=== PATIENT | male | born 1965 | race African-American/Black ===

== ENCOUNTER 2016-08-13 13:53 | Emergency (ER) ==
--- NOTE | 2016-08-13 15:57 | PROVIDER DOCUMENTATION ---
HPI-Musculoskeletal Pain/Inj - GENERAL Chief Complaint: Extremity Pain Stated Complaint: ARM EDEMA Time Seen by Provider: 08/13/16 15:45 Source: patient - HX OF PRESENT ILLNESS-MUSKULOSKELTAL Nature of Presenting Problem: 51 year old AAM presents with c/o RUE swelling, edema, erythema spreading from the wrist up into the axilla region. associated symptoms include subjective fever/chills. pt has a history of gout and he reports this feels like his gout. he reports he has flare ups every other month and his primary care doctor at the [facility] merlin on Prednisone 20mg daily to control, he ran out a few weeks ago. Quality of Pain: reports: aching, dull Severity in ED: mild Onset/Duration: 3 days ago Timing: still present, constant, getting worse Modifying Factors: improves with: nothing, analgesics (pt reports brief relief with advil) Any recent injury?: No Similar Symptoms Previously?: Yes Recently seen or treated by another doctor?: No Review of Systems - Adult - REVIEW OF SYSTEMS - ADULT Constitutional: reports: see HPI, chills, fever. denies: fatique Eyes: reports: no symptoms reported. denies: discharge, blurred vision, double vision Ears, Nose, Mouth & Throat: reports: no symptoms reported. denies: ear discharge, ear pain, nose pain, loose teeth, throat pain, throat swelling Cardiovascular: reports: no symptoms reported. denies: chest pain, palpitations , syncope Respiratory: reports: no symptoms reported. denies: chronic cough, cough, shortness of breath, wheezing Gastrointestinal: reports: no symptoms reported. denies: abdominal pain, diarrhea, nausea, vomiting Genitourinary: reports: no symptoms reported. denies: dysuria, hematuria, urgency Musculoskeletal: reports: see HPI, joint pain, joint swelling. denies: bone pain, back pain, frequent leg cramps, muscle aches, muscle weakness, neck pain Integumentary: reports: no symptoms reported. denies: hives, itching, rash, skin thickening Neurological: reports: no symptoms reported. denies: ataxia, dizziness/vertigo , numbness, paresthesia, tremors Psychiatric: reports: no symptoms reported Endocrine: reports: no symptoms reported Hematologic/Lymphatic: reports: no symptoms reported Allergic/Immunologic: reports: no symptoms reported All Other Systems: Reviewed and Negative Past History - Adult - PAST MEDICAL HISTORY-ADULT Review of Records: reports: Old Records Reviewed, Nursing Assessment Review, Medications Reviewed, Social history reviewed & non-contributory. Major Childhood Illnesses: reports: denies history Cardiovascular: reports: HTN Respiratory: reports: denies history Gastrointestinal: reports: denies history Obstetrical/Gynecological: reports: denies history Genitourinary: reports: denies history Musculoskeletal: reports: other (GOUT) Neurological: reports: denies history Endocrine/Immune: reports: Diabetes, RA Other Conditions: reports: denies history - PRIOR SURGERIES/PROCEDURES Surgical/Procedure History: reports: none - IMMUNIZATION STATUS Childhood Immunizations: See Nurse Assessment Flu Vaccine: See Nurse Assessment - FAMILY HISTORY Family History: reviewed, not pertinent - SOCIAL HISTORY Smoking: denies, non-smoker Substance Use: none/never Alcohol Use Frequency: never Physical Exam-Injury Related - Physical Exam-Injury Related Initial Vital Signs Reviewed: Yes General Appearance: appears well, alert, no apparent distress. negative: mild distress, moderate distress, severe distress Eyes: pink conjunctivae. negative: conjuctival exudate, pale conjunctivae, photophobia, sclera injected, scleral icterus, subconjunctival hemorrhage Head, Ears, Nose, Mouth & Throat: normocephalic/atraumatic, moist mucous membranes, normal ENT inspection Neck: non-tender, full range of motion, supple, normal inspection Respiratory: chest non-tender, lungs clear, normal breath sounds, no pleuratic chest pain, no respiratory distress, no accessory muscle use. negative: respiratory distress, decreased breath sounds, accessory muscle use, crackles, rales, rhonchi, stridor, wheezing Cardiovascular: normal peripheral pulses, regular rate, rhythm, no edema, no gallop Peripheral Pulses: radial (R): 3+, radial (L): 3+ Abdominal Exam: normal bowel sounds, non tender, soft Male Genitalia: deferred Rectal Exam: deferred Lymphatic: no adenopathy Back Exam: normal inspection, no CVA tenderness, no vertebral tenderness Extremity: normal range of motion, normal gait, no pedal edema, no calf tenderness, normal capillary refill, erythema (LUE with erythema from the finger tips spreading up into the axilla region.), inflammation, swelling ( pitting edema to left forearm), tenderness. negative: non-tender, normal inspection, abnormal NV exam, deformity, joint effusion, pulse deficit, pedal edema, slow capillary refill Integumentary: erythema, swelling, tenderness. negative: pallor, petechiae, purpura Neurologic: grossly normal, no motor/sensory deficits Psych/Mental Status: normal mood/affect, normal thought content, normal thought process, oriented x 3 - Glascow Coma Score Best Eye Response ([place]): (4) open spontaneously Best Verbal Response ([place]): (5) oriented Best Motor Response ([place]): (6) obeys commands [place] Total: 15 Progress - PLAN OF CARE/RESULTS Progress/Plan/Lab Results: Laboratory Tests 08/13/16 08/13/16 08/13/16 17:09 17:10 17:10 WBC 14.40 H RBC 4.43 L Hgb 12.2 L Hct 35.8 L MCV 80.8 L MCH 27.5 MCHC 34.1 RDW Std Deviation 17.3 H Plt Count 230 MPV 10.4 Immature Gran % (Auto) 2.2 H Neut % (Auto) 80.6 H Lymph % (Auto) 6.2 L [place] % (Auto) 9.8 H Eos % (Auto) 0.9 Baso % (Auto) 0.3 Immature Gran # (Auto) 0.31 H Neut # (Auto) 11.62 H Lymph # (Auto) 0.89 L [place] # (Auto) 1.41 H Eos # (Auto) 0.13 Baso # (Auto) 0.04 Sodium 141 Potassium 3.3 L Chloride 107 Carbon Dioxide 25 Anion Gap 10 BUN 16 Creatinine 0.8 Estimated GFR/1.73 m2 > 60 BUN/Creatinine Ratio 20 Glucose 122 H Calculated Osmolality 284 Uric Acid Calcium 8.8 Total Bilirubin 0.30 AST 18 ALT 24 Alkaline Phosphatase 61 Total Protein 6.8 Albumin 3.6 Globulin 3.0 Albumin/Globulin Ratio 1.0 Plasma Lactate Urine Source CLEAN CATCH Urine Color YELLOW Urine Clarity CLEAR Urine pH 5.0 Ur Specific [place] 1.015 Urine Protein 2+(100 mg/dL) A Urine Ketones NEGATIVE Urine Blood 1+ A Urine Nitrite NEGATIVE Urine Bilirubin NEGATIVE Urine Urobilinogen NORMAL Urine Microscopic RBC <10 Urine WBC NEGATIVE Urine Microscopic WBC <10 Urine Glucose TRACE(50 mg/dL) A 08/13/16 08/13/16 17:10 17:10 WBC RBC Hgb Hct MCV MCH MCHC RDW Std Deviation Plt Count MPV Immature Gran % (Auto) Neut % (Auto) Lymph % (Auto) [place] % (Auto) Eos % (Auto) Baso % (Auto) Immature Gran # (Auto) Neut # (Auto) Lymph # (Auto) [place] # (Auto) Eos # (Auto) Baso # (Auto) Sodium Potassium Chloride Carbon Dioxide Anion Gap BUN Creatinine Estimated GFR/1.73 m2 BUN/Creatinine Ratio Glucose Calculated Osmolality Uric Acid 7.9 H Calcium Total Bilirubin AST ALT Alkaline Phosphatase Total Protein Albumin Globulin Albumin/Globulin Ratio Plasma Lactate 1.7 Urine Source Urine Color Urine Clarity Urine pH Ur Specific [place] Urine Protein Urine Ketones Urine Blood Urine Nitrite Urine Bilirubin Urine Urobilinogen Urine Microscopic RBC Urine WBC Urine Microscopic WBC Urine Glucose Orders Category Date Time Status Saline Loc DIRECTED Care 08/13/16 15:50 Active NPO Diet 08/13/16 15:50 Active FOREARM-LEFT [RAD] Stat Exams 08/13/16 15:56 Draft BLOOD CULTURE [BLDCUL] Stat Lab 08/13/16 15:59 Ordered CBC WITH ELECTRONIC DIFF [HEME] Stat Lab 08/13/16 17:10 Completed COMPREHENSIVE METABOLIC PANEL [CHEM] Stat Lab 08/13/16 17:10 Completed LACTATE, PLASMA [CHEM] Stat Lab 08/13/16 17:10 Completed URIC ACID [CHEM] Stat Lab 08/13/16 17:[address] W/POSS RFLX CULT [URINALYSIS] Stat Lab 08/13/16 17:09 Completed Clindamycin Med 08/13/16 18:30 Discontinued 600 mg IM NOW ONE Sulfamethoxazole/Tmp D.s. [Septra Ds] Med 08/13/16 18:30 Discontinued 2 each PO NOW ONE Vital Signs - 24 hr 08/13/16 08/13/16 14:02 17:02 Temperature 98.7 F 97.8 F Pulse Rate 113 H 92 H Respiratory 18 18 Rate Blood Pressure 184/72 159/81 O2 Sat by Pulse 100 100 Oximetry Recommended admission to the patient, he refuses, requesting a trail of oral antibiotics. He reports he will return for worsening symptoms. Dr. Godinez aware. Departure - Departure Time of Disposition Order: 18:32 DIAGNOSIS: Cellulitis Qualifiers: Site of cellulitis: extremity Site of cellulitis of extremity: upper extremity Laterality: left Qualified Code(s): L03.114 - Cellulitis of left upper limb Gout attack Qualifiers: Gout site: elbow Gout etiology: idiopathic Laterality: left Qualified Code(s): M10.022 - Idiopathic gout, left elbow Disposition: AGAINST MEDICAL ADVICE 07 Certified Medical Emergency: Emergent Condition: Stable Additional Instructions: Follow up with your doctors at the OR Monday. Please return for any worsening symptoms. Take the antibiotics as prescribed. ED Follow Up Instructions: You have been treated by a care provider in the Emergency Department. These instructions are being provided to you so you can have an understanding of how to care for yourself upon discharge. Upon discharge from the Emergency Department, you are responsible for making arrangements for follow-up care by a physician of your choice. Take all prescribed medications as directed. Return to the Emergency Department immediately for any new or worsening symptoms. You may call the Physician Referral phone number at [phone] to obtain a list of Physicians who are taking new patients. Prescriptions: Clindamycin [Cleocin] 450 mg PO Q6HR #120 capsule Cephalexin [Keflex] 500 mg PO 4XDAY #40 capsule Famotidine [Pepcid] 20 mg PO DAILY #20 tablet Ketorolac [Toradol] 10 mg PO Q6H PRN PRN #20 tablet PRN Reason: left arm pain Referrals: None,PCP [Primary Care Provider] - Attestation - Physician/ FREDRICK Attestation Patient care was provided by Advanced Practice Provider:: Yes Advanced Practice Provider:: Placido Uribe Advanced Practice Provider documentation review:: The Mid-level provider documentation, treatment plan and medical decision making was reviewed by the physician who agrees with all treatment and medical decision making by the [facility]. The physician spent face to face time with patient:: Yes (Dr. Godinez to bedside for evaluation.)
[2016-08-13 17:03] VITALS: BP 159/81
[2016-08-13 17:37] LABS: MANUAL DIFF NEEDED? NO
[2016-08-13 17:40] LABS: URINE CULTURE PL NEEDED? NO; URINE SOURCE CLEAN CATCH
[2016-08-13 17:43] LABS: BASO% 0.3 % (0.0-0.8); EOS# 0.13 X1000 (0.0-0.7); EOS% 0.9 % (0.0-10.0); HEMATOCRIT 35.8 % (42.0-52.0); HEMOGLOBIN 12.2 g/dL (14.0-18.0); IMM GRAN# 0.31 X1000 (0.0-0.04); IMM GRAN% 2.2 % (0.0-0.5); LYMPH# 0.89 X1000 (1.2-3.4); LYMPH% 6.2 % (20.5-51.1); MCH 27.5 PG (27-31); MCHC 34.1 g/dL (33-37); MCV 80.8 FL (81-99); MONO# 1.41 X1000 (0.11-0.59); MONO% 9.8 % (1.7-9.3); MPV 10.4 FL (7.4-10.4); NEUT% 80.6 % (42.2-75.2); PLT 230 X1000 (130-400); RBC 4.43 XMIL (4.7-6.1)
[2016-08-13 18:00] LABS: AGAP 10; ALBUMIN 3.6 g/dL (3.5-5.0); ALKALINE PHOSPHATASE 61 U/L (32-122); BUN 16 mg/dL (8-22); CALCIUM 8.8 mg/dL (8.8-10.2); CHLORIDE 107 mmol/L (98-107); COSMO 284; GOT 18 U/L (10-34); GPT 24 U/L (10-44); POTASSIUM 3.3 mmol/L (3.5-5.1); SODIUM 141 mmol/L (136-145); TCO2 25 mmol/L (25-35); TOTAL PROTEIN 6.8 g/dL (6.3-8.3)
--- NOTE | 2016-08-13 18:16 | Diag Imaging Result Document ---
PROCEDURE NAME: FOREARM-LEFT - 08/13/2016 LEFT FOREARM, 2 VIEWS: FINDINGS: There is no fracture identified. There are no destructive changes identified. There are degenerative changes at the wrist. There is soft tissue swelling at the dorsal medial elbow and proximal forearm. 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 IMPRESSION: 1. No evidence of fracture. 2. Degenerative changes at wrist. 3. 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
[2016-08-13 18:22] LABS: BILIRUBIN URINE NEGATIVE (NEGATIVE)
[2016-08-13 18:23] LABS: URINE RBC <10 /HPF (<10); URINE WBC <10 /HPF (<10)
[2016-08-13] MEDS ORDERED: SEPTRA DS PO ONE (18:30)
[2016-08-13] MEDS ORDERED: CLINDAMYCIN IM ONE (18:30)
[2016-08-13 19:32] LABS: BLOOD URINE 1+ (NEGATIVE); CLARITY CLEAR (CLEAR); COLOR YELLOW; LEUKOCYTES URINE NEGATIVE (NEGATIVE); NITRITE URINE NEGATIVE (NEGATIVE); PROTEIN URINE 2+(100 mg/dL) mg/dL (NEGATIVE); SP GRAVITY URINE 1.015; UROBILINOGEN URINE NORMAL
== END 2016-08-13 18:55 | disposition left against medical advice (07) ==
LOC: P.ED 13:53
DX: L03.114 Cellulitis of left upper limb (principal); M10.022 Idiopathic gout, left elbow; M79.601 Pain in right arm; R60.0 Localized edema; L53.9 Erythematous condition, unspecified; R50.9 Fever, unspecified; I10 Essential (primary) hypertension; E11.9 Type 2 diabetes mellitus without complications; M06.9 Rheumatoid arthritis, unspecified
CPT/HCPCS: 80053; 81001; 83605; 84550; 85025; 87040; 96372; S0077